=== PATIENT | female | born 1950 | race Caucasian/White ===

== ENCOUNTER 2020-12-03 12:31 | Emergency (ER) | payer MEDICARE ==
[~2020-12-03 12:31] MED LIST: CELEBREX **OUT100 MG PO; CRESTOR10 MG PO; CYMBALTA 30MG C30 MG PO; INVOKANA300 MG PO; LYRICA 50MG CAP50 MG PO; METFORMIN HCL500 MG PO; PREVACID30 M1 PO; PRINIVIL10 MG PO; RESTORIL15 MG PO; SYNTHROID100 MCG PO; ULTRAM50 MG PO
[2020-12-03 12:49] LABS: BASOPHIL 0.6 % (0-2); EOSINOPHIL 1.7 % (0-7); HCT 36.4 % (37.0-47.0); HGB 11.1 g/dl (12.5-16.0); LYMPHOCYTE 32.2 % (15-48); MCH 27.7 pg (25.0-31.0); MCHC 30.5 g/dL (32.0-36.0); MCV 90.8 fL (78.0-100.0); MONOCYTE 6.5 % (0-12); MPV 9.9 fL (6.0-9.5); NEUTROPHIL 58.8 % (41-80); NRBC 0; PLT 262 K/uL (150-400); RBC 4.01 M/uL (4.20-5.40); RDW 13.9 % (11.5-14.0)
[2020-12-03 13:09] LABS: INR 1.02 (0.9-1.2); PROTHROMBIN TIME 12.7 SECONDS (11.4-13.6); PTT 35.2 SECONDS (22.2-34.7)
[2020-12-03 13:16] LABS: BILIRUBIN - TOTAL 0.4 mg/dL (0.2-1.0); BUN/CREAT RATIO (CALC) 23.4 RATIO; CREATININE 0.77 mg/dL (0.51-0.95); GLOBULIN (CALCULATION) 3.7 g/dL; POTASSIUM 4.2 mmol/L (3.5-5.1); TOTAL PROTEIN 7.7 g/dL (6.4-8.2)
== END 2020-12-04 00:30 | disposition other institution (70) ==
LOC: FER 12:31
PROVIDERS: Emergency Medicine
DX: R07.2 Precordial pain (principal); R06.02 Shortness of breath; I25.10 Atherosclerotic heart disease of native coronary artery without angina pectoris; E11.9 Type 2 diabetes mellitus without complications; Z98.890 Other specified postprocedural states; Z95.5 Presence of coronary angioplasty implant and graft; Z79.82 Long term (current) use of aspirin; Z79.899 Other long term (current) drug therapy; Z88.1 Allergy status to other antibiotic agents
CPT/HCPCS: 36415; 71045; 71275; 80053; 84484; 85025; 85379; 85610; 85730; 93005; J2270; J2405; J3010; J7030; J7050; Q9967